=== PATIENT | female | born 1980 ===

== ENCOUNTER → 2024-06-21 10:37 | Outpatient (CLI) | payer OTHER ==
[~2024-06-21 10:37] MED LIST: NEURONTIN300 MG PO; PERCOCET 5/3251 TAB PO; POLY119PG PO
== END | disposition home or self-care (01) ==
LOC: NUCLEAR 10:37
PROVIDERS: ATTEND Physical Medicine & Rehabilitation
DX: I82.402 Acute embolism and thrombosis of unspecified deep veins of left lower extremity (principal)